=== PATIENT | female | born 1980 | race African-American/Black ===

== ENCOUNTER 2021-08-31 03:48 | Emergency (ER) | payer MEDICARE, MEDICAID, SELFPAY ==
[2021-08-31 03:59] VITALS: BP 140/101; PULSE 89; RESP 16; TEMP 36.6; O2SAT 99; BMI 35.0
[2021-08-31 04:40] LABS: Appearance Urine CLEAR; Color Urine YELLOW; Glucose Urine UA NEG (NEG); Leukocyte Esterase Urine NEG (NEG); Nitrite Urine NEG (NEG); PH 5.5 (5.0-8.0); Specific Gravity - Urine >= 1.030 (1.005-1.025); Urine Blood NEG (NEG); Urine Ketones NEG (NEG); Urine Protein TRACE MG/DL (NEG-TRACE)
[2021-08-31 04:42] LABS: UACC CULT NO
[2021-08-31 04:43] LABS: UPreg QC Valid YES; Urine Pregnancy NEGATIVE (NEGATIVE)
[2021-08-31 04:47] LABS: Bacteria Urine 3+ /LPF; Mucus Urine 2+ /LPF; RBC Urine 0 /HPF (0); Squamous Epithelial Cell Urine 3+ /LPF
[2021-08-31 04:48] LABS: Hyaline Casts Urine 0-2 /LPF
[2021-08-31 04:54] LABS: COVID-19 Test Negative (Negative); IDNOW Serial# 9DD0AD1C
[2021-08-31 04:59] LABS: Amphetamine Screen Urine Not Detected (Not Detect); Barbiturates, Urine Not Detected (Not Detect); Benzodiazepines Screen Urine Not Detected (Not Detect); Cannabinoid Screen Urine POSITIVE (Not Detect); Cocaine Screen Urine Not Detected (Not Detect); Fentanyl, urine Not Detected (Not Detect); Opiate Screen Urine Not Detected (Not Detect); Phencyclidine Screen Urine Not Detected (Not Detect)
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
--- NOTE | 2021-08-31 06:45 | PC.NURSE ---
Patient appears sleeping at this time, no distress observed/reported, behavior appropriate, med rec completed/MAR active, BHN referral completed/confirmed by Sandra, patient will be seen in the morning, will continue to monitor.
--- NOTE | 2021-08-31 07:03 | PC.NURSE ---
patient appears to remain asleep at present respirations are even and unlabored, patient appears in no distress
[2021-08-31 08:14] VITALS: BP 140/101; PULSE 89
[2021-08-31] MEDS: hydrOXYzine HCL 50 MG TABLET PO (08:14)
[2021-08-31] MEDS: Escitalopram Oxalate 10 MG TABLET PO (08:14)
[2021-08-31] MEDS: amLODIPine Besylate 5 MG TABLET PO (08:14)
[2021-08-31 09:54] VITALS: RESP 17
--- NOTE | 2021-08-31 11:02 | MHC.CARE ---
0830 CARE Team spoke with patient in 5, she stated that she has been at [facility] since Sunday and would like to go to a different respite, advised she will have to wait for [facility] to evaluate her. Prefers to be called Skinny, patient said she is in the process of legally changing her name.
== END 2021-08-31 16:38 | disposition home or self-care (01) ==
PROVIDERS: Emergency Provider Emergency Medicine Emergency Medical Services; PCP Nurse Practitioner Family
DX: R45.6 Violent behavior (principal); Z20.822 Contact with and (suspected) exposure to COVID-19
CPT/HCPCS: 36415; 80307; 81001; 81025; 87635; 99284

== ENCOUNTER 2021-10-14 21:49 | Inpatient (IN) | payer MEDICARE, MEDICAID, SELFPAY ==
[2021-10-14 21:58] VITALS: BP 135/86; PULSE 107; RESP 18; TEMP 36.5; O2SAT 98; BMI 35.5
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
[2021-10-14 22:51] LABS: COVID-19 Test Negative (Negative)
[2021-10-14 23:40] LABS: MANUAL DIFF FLAG NO
[2021-10-14 23:41] LABS: Basophils Absolute Auto 0.1 X10*3/uL (0.0-0.2); Basophils Percent Auto 0.7 % (0-2); Eosinophils Absolute Auto 0.2 X10*3/uL (0.0-0.4); Eosinophils Percent Auto 2.1 % (0-4); Hematocrit 41.2 % (37.0-47.0); Hemoglobin 13.9 g/dl (12.0-16.0); Imm Gran Abs Auto 0.04 X10*3/uL (0.00-0.03); Imm Gran Pct Auto 0.5 % (0.0-0.4); Lymphocytes Absolute Auto 2.4 X10*3/uL (1.2-4.9); Mean Corpuscular HGB Conc 33.7 g/dl (31.0-35.0); Mean Corpuscular Hemoglobin 29.6 pg (27.0-33.0); Mean Corpuscular Volume 87.7 fL (80.0-98.0); Mean Platelet Volume 10.4 fL (9.4-12.3); Monocytes Absolute Auto 0.6 X10*3/uL (0.1-1.2); Monocytes Percent Auto 6.5 % (2-11); Neutrophils Absolute Auto 5.2 x10*3/uL (2.0-8.3); Neutrophils Percent Auto 62.2 % (45-73); Platelet Count 241 X10*3/uL (160-400); Red Cell Distribution Width 13.2 % (11.0-16.0); White Blood Count 8.4 X10*3/uL (4.8-10.8)
[2021-10-14 23:59] LABS: Ethanol < 10 mg/dL
[2021-10-15 00:03] LABS: Alanine Aminotransferase 27 U/L (0-31); Albumin Level 4.1 g/dL (3.5-5.0); Alkaline Phosphatase 57 U/L (39-117); Anion Gap 12 (12-20); Aspartate Amino Transferase 23 U/L (5-31); Bilirubin Direct < 0.2 mg/dL (0.0-0.5); Bilirubin Total 0.2 mg/dL (0.0-1.0); Blood Urea Nitrogen 11 mg/dL (9-16); Calcium 9.3 mg/dL (8.4-10.2); Carbon Dioxide 29 mmol/L (22-29); Chloride 103 mmol/L (96-108); Creatinine Clr Calc Pharmacy 97.9; Estimated Glomerular Filt Rate > 60; Glucose Random 110 mg/dL (60-115); Potassium 3.5 mmol/L (3.3-5.1); Sodium 140 mmol/L (135-145); Total Protein 6.9 g/dL (6.5-8.0)
[2021-10-15 00:05] LABS: Amphetamine Screen Urine Not Detected (Not Detect); Barbiturates, Urine Not Detected (Not Detect); Benzodiazepines Screen Urine Not Detected (Not Detect); Cannabinoid Screen Urine POSITIVE (Not Detect); Cocaine Screen Urine POSITIVE (Not Detect); Fentanyl, urine Not Detected (Not Detect); Opiate Screen Urine Not Detected (Not Detect); Phencyclidine Screen Urine Not Detected (Not Detect)
--- NOTE | 2021-10-15 01:08 | ECG_ITS ---
Test Reason : [facility] Blood Pressure : / mmHG Vent. Rate : 093 BPM Atrial Rate : 093 BPM P-R Int : 154 ms QRS Dur : 080 ms QT Int : 362 ms P-R-T Axes : 063 062 039 degrees QTc Int : 450 ms Normal sinus rhythm Normal ECG No previous ECGs available Referred By: Sadie Kim Electronically Signed By:ADONIS HERNANDEZ MD
--- NOTE | 2021-10-15 01:10 | PC.NURSE ---
JULIUSN in with patient plan is to admit for treatment med rec completed
[2021-10-15 01:49] VITALS: BP 129/78; PULSE 91; RESP 18; TEMP 36.2; O2SAT 100
--- NOTE | 2021-10-15 01:53 | PC.NURSE ---
Patient being admitted to m5 room 509-1 to md Norberto Rodriguez. Vitals are within normal limits ekg completed and signed by
--- NOTE | 2021-10-15 02:43 | PC.NURSE ---
Report given to m5 rn lalo patient was escorted to m5 via security with staff member and maldonados. room 509-1 dx si and to md Alexx dubois.
[2021-10-15 02:50] VITALS: BP 141/93; PULSE 86; RESP 18; TEMP 36.5; O2SAT 100
[2021-10-15] MEDS: traZODone HCL 50 MG TABLET PO (03:43)
[2021-10-15] MEDS: Acetaminophen 325 MG TABLET 650 MG PO ×2 (03:43→21:51)
[2021-10-15 04:12] VITALS: BMI 35.5
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
[2021-10-15 06:00] VITALS: BP 129/76; PULSE 94; RESP 18; O2SAT 99
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
[2021-10-15 08:22] VITALS: BP 130/84; PULSE 85
[2021-10-15] MEDS: amLODIPine Besylate 5 MG TABLET PO (08:22)
[2021-10-15] MEDS: Nicotine Polacrilex 2 MG GUM BUCCAL ×3 (08:23→15:07)
[2021-10-15] MEDS: OLANZapine 5 MG TABLET PO ×2 (08:23→20:41)
[2021-10-15] MEDS: hydrOXYzine HCL 50 MG TABLET PO (12:03)
[2021-10-15 14:17] VITALS: BP 138/87; PULSE 99; RESP 16
[2021-10-15] MEDS: Sodium Chloride 0.65 % Nasal 44 ML SPRBTL 1 SPRAY NOSTRIL-B ×2 (14:18→20:42)
[2021-10-15 21:45] VITALS: BP 137/96; PULSE 83; TEMP 36.7
[2021-10-16] MEDS: traZODone HCL 50 MG TABLET PO (02:19)
[2021-10-16] MEDS: Sodium Chloride 0.65 % Nasal 44 ML SPRBTL 1 SPRAY NOSTRIL-B ×3 (02:19→14:51)
[2021-10-16] MEDS: busPIRone HCl 5 MG TABLET PO ×2 (02:19→13:38)
[2021-10-16 06:00] VITALS: BP 137/84; PULSE 102; RESP 18; TEMP 36.7; O2SAT 100
[2021-10-16 08:35] VITALS: BP 139/86; PULSE 94
[2021-10-16] MEDS: amLODIPine Besylate 5 MG TABLET PO (08:35)
[2021-10-16] MEDS: OLANZapine 5 MG TABLET PO (08:35)
[2021-10-16] MEDS: Nicotine Polacrilex 2 MG GUM BUCCAL (10:43)
--- NOTE | 2021-10-16 11:02 | HO.PSYCHPN ---
Subjective Subjective Date of Service: 10/16/21 Reason For Visit: SI Subjective Notes: Conditional Voluntary Healthcare Proxy: No Guardianship: No Medical Problems Affecting Mental Status: No Interim History: Patient reporting new AH to harm self, no intent or plan, no specific way - ongoing depression- Medication Compliance: Yes Side effects from medications: No Attending Groups: Intermittent Review of Systems Acute medical concerns: No Medical Review of Systems: unchanged Mental Status Exam Mental Status Exam Narrative: mildly unkempt- Patient Orientation: Person, Place, Time and Situation Level of Consciousness: Awake Patient Behavior: Appropriate Mood Description: Withdrawn and Anxious Affect Description: Blunted Patient Cognition Impaired: No Ability to Follow Directions: Fair Speech Pattern: Clear Hallucinations: Auditory (can't tell what they are saying) Thought Process: Intact Thought Content: positive for Racing and positive for Suicidal Ideation Depressive Symptoms: Increased Anxiety, Increased Irritability, Thoughts of /Suicide and Difficulty Concentrating Abnormal Motor Activity Signs and Symptoms: Restlessness Judgement: Fair Judgement and Insight: keeping us informed of sys Diagnostics Vital Signs (24Hr): Vital Signs - 24 hr 10/15/21 14:17 10/15/21 21:45 10/16/21 06:00 Temperature 98.1 F 98.1 F Pulse Rate 99 83 102 H Respiratory Rate 16 18 Blood Pressure 138/87 137/96 H 137/84 Pulse Oximetry 100 10/16/21 08:35 Temperature Pulse Rate 94 Respiratory Rate Blood Pressure 139/86 Pulse Oximetry Body Mass Index 35.5 Labs Results: 10/14/21 23:37 10/14/21 23:37 Labs: Laboratory Results - last 48 hr 10/14/21 10/14/21 10/14/21 22:22 23:37 23:37 WBC 8.4 RBC 4.70 Hgb 13.9 Hct 41.2 MCV 87.7 MCH 29.6 MCHC 33.7 RDW 13.2 Plt Count 241 MPV 10.4 Immature Gran % (Auto) 0.5 H Neut % (Auto) 62.2 Lymph % (Auto) 28.0 [place] % (Auto) 6.5 Eos % (Auto) 2.1 Baso % (Auto) 0.7 Lymph # (Auto) 2.4 [place] # (Auto) 0.6 Eos # (Auto) 0.2 Baso # (Auto) 0.1 Abs Immat Gran (auto) 0.04 H Absolute Neuts (auto) 5.2 Absolute Nucleated RBC 0.000 Nucleated RBC % (auto) 0.0 Sodium 140 Potassium 3.5 Chloride 103 Carbon Dioxide 29 Anion Gap 12 BUN 11 Creatinine 0.91 Estim Creat Clear Calc 97.9 Estimated GFR > 60 Random Glucose 110 Calcium 9.3 Total Bilirubin 0.2 Direct Bilirubin < 0.2 AST 23 ALT 27 Alkaline Phosphatase 57 Total Protein 6.9 Albumin 4.1 Urine Opiates Screen Urine Fentanyl Screen Ur Barbiturates Screen Ur Phencyclidine Scrn Ur Amphetamines Screen U Benzodiazepines Scrn Urine Cocaine Screen U Marijuana (THC) Screen Ethyl Alcohol COVID-19 (BRANDI) Negative COVID-19 Clin Com See Note 10/14/21 10/14/21 23:37 23:44 WBC RBC Hgb Hct MCV MCH MCHC RDW Plt Count MPV Immature Gran % (Auto) Neut % (Auto) Lymph % (Auto) [place] % (Auto) Eos % (Auto) Baso % (Auto) Lymph # (Auto) [place] # (Auto) Eos # (Auto) Baso # (Auto) Abs Immat Gran (auto) Absolute Neuts (auto) Absolute Nucleated RBC Nucleated RBC % (auto) Sodium Potassium Chloride Carbon Dioxide Anion Gap BUN Creatinine Estim Creat Clear Calc Estimated GFR Random Glucose Calcium Total Bilirubin Direct Bilirubin AST ALT Alkaline Phosphatase Total Protein Albumin Urine Opiates Screen Not Detected Urine Fentanyl Screen Not Detected Ur Barbiturates Screen Not Detected Ur Phencyclidine Scrn Not Detected Ur Amphetamines Screen Not Detected U Benzodiazepines Scrn Not Detected Urine Cocaine Screen POSITIVE H U Marijuana (THC) Screen POSITIVE H Ethyl Alcohol < 10 COVID-19 (BRANDI) COVID-19 Clin Com Medications Medications Current Medications Acetaminophen (Acetaminophen 325 Mg Tablet) 650 mg PO Q6H PRN PRN Reason: Headache/Pain Mild Scale (1-3) Last Admin: 10/15/21 21:51 Dose: 650 mg Documented by: Al Hydroxide/Mg Hydroxide (Magnesium Hydrox/Alum Hydrox 30 Ml Oral.Susp) 30 ml PO Q6H PRN PRN Reason: Heartburn/Nausea Amlodipine Besylate (Amlodipine Besylate 5 Mg Tablet) 5 mg PO DAILY MARY; Protocol Last Admin: 10/16/21 08:35 Dose: 5 mg Documented by: Buspirone HCl (Buspirone Hcl 5 Mg Tablet) 5 mg PO TID PRN PRN Reason: anxiety Last Admin: 10/16/21 02:19 Dose: 5 mg Documented by: Hydroxyzine HCl (Hydroxyzine Hcl 50 Mg Tablet) 50 mg PO TID PRN PRN Reason: Anxiety Last Admin: 10/15/21 12:03 Dose: 50 mg Documented by: Hydroxyzine HCl (Hydroxyzine Hcl 25 Mg Tablet) 25 mg PO BEDTIME PRN PRN Reason: Anxiety Magnesium Hydroxide (Milk Of Magnesia 30 Ml Oral.Susp) 30 ml PO DAILY PRN PRN Reason: Constipation Nicotine Polacrilex (Nicotine Polacrilex 2 Mg Gum) 2 mg BUCCAL Q2H PRN PRN Reason: Nicotine Cravings Last Admin: 10/16/21 10:43 Dose: 2 mg Documented by: Olanzapine (Olanzapine 5 Mg Tablet) 5 mg PO BID MARY Last Admin: 10/16/21 08:35 Dose: 5 mg Documented by: Sodium Chloride (Sodium Chloride 0.65 % Nasal 44 Ml Sprbtl) 1 spray NOSTRIL-B Q1H PRN PRN Reason: Nasal Congestion Last Admin: 10/16/21 08:35 Dose: 1 spray Documented by: Trazodone HCl (Trazodone Hcl 50 Mg Tablet) 50 mg PO BEDTIME PRN PRN Reason: Insomnia Last Admin: 10/16/21 02:19 Dose: 50 mg Documented by: Allergies Allergies Allergy/AdvReac Type Severity Reaction Status Date / Time No Known Allergies Allergy Unverified 08/05/20 18:43 flu shot Allergy Unknown unknown Uncoded 10/15/21 18:55 Assessment & Plan Assessment & Plan (1) Suicidal ideation: Status: Acute Code(s): R45.851 - Suicidal ideations Assessment and Plan: mileu therapy 15min checks groups as tolerated (2) Mood disorder: Status: Acute Code(s): F39 - Unspecified mood [affective] disorder Assessment and Plan: continue trial olanzapine change all olanzapine to hs and add in low dose antidep in am - hx escitalopram (3) Cannabis abuse: Status: Acute Code(s): F12.10 - Cannabis abuse, uncomplicated Assessment and Plan: psychoed re cannabis and mood/psychosis (4) Cocaine abuse: Status: Acute Code(s): F14.10 - Cocaine abuse, uncomplicated Assessment and Plan: psychoed/groups re substance abuse Assessment and Plan: continue trial olanzapine groups psych/dula mileu I spent minutes with the patient and/or on the patient floor today, greater than?50% of which was spent counseling/coordinating care. Patient educated on: medication risk/benefits Informed Consent: understands Reason for contiued inpatient stay Substantial Risk for: harm to self and rapid decompensation
[2021-10-16] MEDS: Escitalopram Oxalate 5 MG TABLET PO (13:38)
[2021-10-16] MEDS: Acetaminophen 325 MG TABLET 650 MG PO (16:05)
[2021-10-16 18:00] VITALS: BP 134/86; PULSE 96; RESP 18; TEMP 36.7; O2SAT 98
[2021-10-16] MEDS: hydrOXYzine HCL 50 MG TABLET PO (18:27)
[2021-10-16] MEDS: OLANZapine 10 MG TABLET PO (20:00)
[2021-10-17] MEDS: busPIRone HCl 5 MG TABLET PO ×3 (00:21→22:15)
[2021-10-17] MEDS: traZODone HCL 50 MG TABLET PO (00:21)
[2021-10-17 06:00] VITALS: BP 155/92; PULSE 88; RESP 18; TEMP 36.6; O2SAT 100
[2021-10-17] MEDS: Acetaminophen 325 MG TABLET 650 MG PO ×2 (09:15→20:23)
[2021-10-17 09:16] VITALS: BP 131/80; PULSE 99
[2021-10-17] MEDS: amLODIPine Besylate 5 MG TABLET PO (09:16)
[2021-10-17] MEDS: Escitalopram Oxalate 5 MG TABLET PO (09:16)
[2021-10-17] MEDS: Nicotine Polacrilex 2 MG GUM BUCCAL (10:04)
[2021-10-17] MEDS: Sodium Chloride 0.65 % Nasal 44 ML SPRBTL 1 SPRAY NOSTRIL-B ×2 (10:27→20:19)
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
[2021-10-17 17:46] VITALS: BP 137/77; PULSE 98; TEMP 36.6; O2SAT 98
[2021-10-17 20:19] VITALS: BP 136/81; PULSE 98
[2021-10-17] MEDS: cloNIDine HCL 0.1 MG TABLET PO (20:19)
[2021-10-17] MEDS: traZODone HCL 100 MG TABLET PO (20:19)
[2021-10-17] MEDS: hydrOXYzine HCL 50 MG TABLET PO (22:15)
[2021-10-18] MEDS: OLANZapine 5 MG TABLET PO ×3 (00:21→18:25)
--- NOTE | 2021-10-18 00:34 | PC.NURSE ---
Patient is awake at 23:55pm Patient is reporting she is still struggling to sleep. Patient becomes agitated and yells at this grant writer stating You all are giving me the wrong meds! Why I am I still awake?!?! Patient continues to be agitated yelling and demanding her personal belongings stating I am leaving! Patient continues to yell and is unable to be de-escalated. Security is called for support. Patient is administered 5 mg Zyprexa P.O. Patient sits up in the Kitchen to de-escalate. Patient is offered Room 505 as an option to lay down and rest. She reports You're not hearing me. I can't sleep. I am not tired! Will continue to monitor patient for safety and well-being.
[2021-10-18] MEDS: Magnesium Hydrox/Alum Hydrox 30 ML ORAL.SUSP PO (01:25)
[2021-10-18] MEDS: hydrOXYzine HCL 50 MG TABLET PO ×3 (01:52→18:25)
[2021-10-18] MEDS: clonazePAM 1 MG TABLET PO (01:52)
--- NOTE | 2021-10-18 02:01 | PC.NURSE ---
Patient is awake and agitated at 1:15am reporting Nausea and demanding to be brought down to the E.D. to be seen by a doctor. Patient is administered Maalox. She continues to report nausea and remains agitated stating she needs to see a doctor. Covering Provider Pily Minor is contacted and Klonopin 1mg and Hydroxyzine 50mg is ordered and administered. Will continue to monitor patient for safety and well-being.
[2021-10-18 06:00] VITALS: BP 159/83; PULSE 102; RESP 20; TEMP 36.2; O2SAT 98
[2021-10-18] MEDS: busPIRone HCl 5 MG TABLET PO (08:27)
[2021-10-18 08:28] VITALS: BP 159/83; PULSE 102
[2021-10-18] MEDS: Escitalopram Oxalate 10 MG TABLET PO (08:28)
[2021-10-18] MEDS: Sodium Chloride 0.65 % Nasal 44 ML SPRBTL 1 SPRAY NOSTRIL-B ×3 (08:28→16:01)
[2021-10-18] MEDS: amLODIPine Besylate 5 MG TABLET PO (08:28)
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
--- NOTE | 2021-10-18 11:01 | PC.NURSE ---
Patient signed a 3 day notice 10.18.21, up on 10.21.21, MD and SW notified.
[2021-10-18 12:03] VITALS: BP 154/67; PULSE 101
[2021-10-18] MEDS: cloNIDine HCL 0.1 MG TABLET PO (12:03)
[2021-10-18] MEDS: Nicotine Polacrilex 2 MG GUM BUCCAL (12:05)
[2021-10-18 13:36] VITALS: BP 154/67; PULSE 101
--- NOTE | 2021-10-18 13:37 | PC.NURSE ---
Patient agitated, anxious in AM, requesting to leave because ' I can't sleep, I don't want another night like last night.' Patient encouraged to meet with provider, and informed re: 3 day notice, which she signed. After meeting patient reported feeling a little better, but requested medication for anxiety/agitation. Zyprexa, clonidine given w/ effect. Pt declined second dose of clonidine, stating 'I am tired.' Pt reports significant reduction in anxiety, reports that at this time she does not want to leave until Sunday.
[2021-10-18 18:00] VITALS: BP 114/69; PULSE 102; TEMP 36.4; O2SAT 99
[2021-10-19] MEDS: Acetaminophen 325 MG TABLET 650 MG PO ×2 (00:11→08:42)
[2021-10-19 00:12] VITALS: BP 155/87; PULSE 100
[2021-10-19] MEDS: QUEtiapine Fumarate 25 MG TABLET 75 MG PO (00:12)
[2021-10-19] MEDS: cloNIDine HCL 0.1 MG TABLET PO ×2 (00:12→08:41)
--- NOTE | 2021-10-19 00:14 | PC.NURSE ---
Patient was anxious, irritable and resistive to care. She was angry about the fact that she was being monitored when she had her two phones. She made a phone call and was walking in the hallway. Staff tried to intervene and she said to back off and stop following me . Security was called for back up. Patient did finally give back her phones but said You all don't pay my fucking phone bill, so what gives you the right to tell me when I can use it? . Patient took prn meds and calmed down. Later patient declined to take her HS meds and said I don't think I really want to take any more meds here. Patient was resting on her bed at the time. About 30 minutes later staff told this sign writer hand the patient had pushed the chair in her room against the bedroom door to keep staff from doing checks. Patient said to this sign writer hand They are really bothering me with opening the door all the time . Patient did not resist when chair was moved away from the door. No further outbursts.
[2021-10-19] MEDS: Sodium Chloride 0.65 % Nasal 44 ML SPRBTL 1 SPRAY NOSTRIL-B ×2 (00:19→04:38)
[2021-10-19 05:59] VITALS: BP 129/82; PULSE 98; RESP 18; TEMP 36.6; O2SAT 100
[2021-10-19 08:41] VITALS: BP 129/82; PULSE 98
[2021-10-19] MEDS: amLODIPine Besylate 5 MG TABLET PO (08:41)
[2021-10-19] MEDS: Escitalopram Oxalate 10 MG TABLET PO (08:42)
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
--- NOTE | 2021-10-19 11:24 | P.DS_ITS ---
DS: Providers Provider Date of Service: 10/19/21 Date of admission: 10/15/21 01:44 Date of discharge: 10/19/21 Primary care physician: Alessandra Physician Attending physician on admission: Kylie Arce Attending physician on discharge: Sergo Watts DS: Diagnosis Discharge Diagnosis (1) Adjustment disorder with mixed disturbance of emotions and conduct in remission: Status: Acute (2) Cocaine abuse: Status: Acute (3) Cannabis abuse: Status: Acute DS: Medications Discharge Medications Home Medications: Previous Rx's Medication Instructions Recorded amlodipine 5 mg tablet 5 mg PO DAILY 30 Days #30 tab 10/19/21 clonidine HCl 0.1 mg tablet 0.1 mg PO BID PRN 30 Days #60 tab 10/19/21 escitalopram oxalate 10 mg tablet 10 mg PO DAILY 30 Days #30 tab 10/19/21 nicotine (polacrilex) 2 mg gum 2 mg BUCCAL Q2H PRN 30 Days #50 ea 10/19/21 quetiapine 25 mg tablet 75 mg PO BEDTIME 30 Days #90 tab 10/19/21 Mental Status Exam Mental Status Exam Narrative: Appearance: mildly unkempt but adequate hygiene Patient Orientation:?Person, Place, Time and Situation Level of Consciousness:?Awake Patient Behavior:?Appropriate Mood Description:? good Affect Description:?congruent, calm Patient Cognition Impaired:?No Ability to Follow Directions:?Fair Speech Pattern:?Clear Hallucinations:?denies Thought Process:? Linear, logical and goal directed Thought Content:? Denies any SI or HI.? discharge, getting into program Abnormal Motor Activity Signs and Symptoms:? None Judgment and Insight:? Intact Data Data Completed and Pending Completed studies during hospitalization [Text1]: 10/14/21 10/14/21 10/14/21 22:22 23:37 23:37 WBC 8.4 RBC 4.70 Hgb 13.9 Hct 41.2 MCV 87.7 MCH 29.6 MCHC 33.7 RDW 13.2 Plt Count 241 MPV 10.4 Immature Gran % (Auto) 0.5 H Neut % (Auto) 62.2 Lymph % (Auto) 28.0 [place] % (Auto) 6.5 Eos % (Auto) 2.1 Baso % (Auto) 0.7 Lymph # (Auto) 2.4 [place] # (Auto) 0.6 Eos # (Auto) 0.2 Baso # (Auto) 0.1 Abs Immat Gran (auto) 0.04 H Absolute Neuts (auto) 5.2 Absolute Nucleated RBC 0.000 Nucleated RBC % (auto) 0.0 Sodium 140 Potassium 3.5 Chloride 103 Carbon Dioxide 29 Anion Gap 12 BUN 11 Creatinine 0.91 Estim Creat Clear Calc 97.9 Estimated GFR > 60 Random Glucose 110 Calcium 9.3 Total Bilirubin 0.2 Direct Bilirubin < 0.2 AST 23 ALT 27 Alkaline Phosphatase 57 Total Protein 6.9 Albumin 4.1 Urine Opiates Screen Urine Fentanyl Screen Ur Barbiturates Screen Ur Phencyclidine Scrn Ur Amphetamines Screen U Benzodiazepines Scrn Urine Cocaine Screen U Marijuana (THC) Screen Ethyl Alcohol COVID-19 (BRANDI) Negative COVID-19 Clin Com See Note 10/14/21 10/14/21 23:37 23:44 WBC RBC Hgb Hct MCV MCH MCHC RDW Plt Count MPV Immature Gran % (Auto) Neut % (Auto) Lymph % (Auto) [place] % (Auto) Eos % (Auto) Baso % (Auto) Lymph # (Auto) [place] # (Auto) Eos # (Auto) Baso # (Auto) Abs Immat Gran (auto) Absolute Neuts (auto) Absolute Nucleated RBC Nucleated RBC % (auto) Sodium Potassium Chloride Carbon Dioxide Anion Gap BUN Creatinine Estim Creat Clear Calc Estimated GFR Random Glucose Calcium Total Bilirubin Direct Bilirubin AST ALT Alkaline Phosphatase Total Protein Albumin Urine Opiates Screen Not Detected Urine Fentanyl Screen Not Detected Ur Barbiturates Screen Not Detected Ur Phencyclidine Scrn Not Detected Ur Amphetamines Screen Not Detected U Benzodiazepines Scrn Not Detected Urine Cocaine Screen POSITIVE H U Marijuana (THC) Screen POSITIVE H Ethyl Alcohol < 10 COVID-19 (BRANDI) COVID-19 Clin Com DS: Summary Hospital Course Hospital Course: 41-year-old female with history of depression and anxiety was admitted to [facility] for 3 days, left [facility] and relapsed on cocaine and mj, feels she left there too soon and then that same evening Presented to [facility] with worsening si the context of her beloved grandmother dying this past week (Lived with grandmother as anesthesiologist and critical care and will now have to move 10/2021.).? Pt reports that she was discharged from [facility] in a good mood, however later that day she was triggered by her ex-partner and again felt suicidal. Patient's depression multifactorial as she has chronic depression, has started using cocaine daily for the past 2 months and is now in withdrawal and is mourning the of her beloved grandmother; additionally she has to find a new place to live.?Pt reported new symptoms of AH at nighttime which were mood congruent and in the content of cocaine withdrawal; she has no history of psychotic symptoms or manic episodes. Patient irritable on admission and with continued insomnia. She was started on Olanzapine 10mg at bedtime which was not helpful and it was changed to PRN. Her Lexapro was increased to 10mg and she was started on clonidine for anxiety/agitation which was helpful but did not resolve insomnia, though her AH and SI resolved. She signed a 3 day notice, demanded discharge but calmed down, apologizing for her demeanor, saying she's just irritable since she's tired. Patient was successfully started on Seroquel at bedtime which resolved her insomnia. Pt intermittently remained irritable and at times verbally assaultive to staff, triggered by specific situations such as not getting access to her phone when she wanted it. However, her SI remained resolved and she did not demonstrate any dangerous behaviors to self or others. After patient slept on Seroquel, she reported being in a good mood and asked for discharge. She continued to deny any SI and says that AH remains resolved. Pt felt stable and wanted to dc so she could attend orientation at [facility] and also to go home and pack her belongings since she's moving this Sunday. Pt was future oriented and optimistic about staying sober. 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 Pt expressed gratitude for help w/ insomnia and feels meds are effective; she denies side-effects; insurance writer reviewed risks/side-effects of regimen including seroquel and pt agrees to continue. Pt is not in imminent risk for harm to self or others; pt has 3 day notice in and request for dc honored. Time spent discussing smoking cessation with patient: 3 to 10 minutes Status at Discharge Functional status at discharge: independent ambulation Overall status at discharge: patient is back to baseline Time Spent with Patient Time attestation: Total time spent providing and/or coordinating discharge services: Time spent: Greater than 30 minutes Discharge Plan Discharge Patient Disposition: Home, Self-Care Discharge Diagnosis: adjustment disorder, with disturbance of mood and conduct, in full remission Referrals: Therapy & Psych: [facility] [Other] - 1 Week (Will call you with appointments once obtained) Care Home: [facility] [Other] - 1 Week (Call to check in every 2 to 3 days) Patricia Paz, FAMILY RESOURCE COORDINATOR-BC [Nurse Practitioner] - 1 Week Discharge Medications: New nicotine (polacrilex) 2 mg Gum 2 mg buccal Q2H PRN (Reason: Nicotine Cravings) 30 Days Qty: 50 RF: 0 clonidine HCl 0.1 mg Tablet 0.1 mg PO BID PRN (Reason: anxiety) 30 Days Qty: 60 RF: 0 escitalopram oxalate 10 mg Tablet 10 mg PO DAILY 30 Days Qty: 30 RF: 0 quetiapine 25 mg Tablet 75 mg PO BEDTIME 30 Days Qty: 90 RF: 0 Changed amlodipine 5 mg tablet 5 mg PO DAILY 30 Days Qty: 30 RF: 0 Discontinued hydroxyzine HCl 50 mg tablet 1 tab PO TID PRN (Reason: Anxiety) RF: 0 olanzapine 10 mg tablet 0.5 tab PO BID RF: 0 Discharge Orders: Discharge Order (Routine); Ordered 10/19/21 Ordered By: Sergo Watts Diet: regular diet Activity on Discharge: As tolerated Stand Alone Forms: Patient Portal Discharge page, Community Support Care Plan Goals: Maintain mood and safe behaviors Take medications as prescribed Continue to pursue sobriety Practice coping skills Continue with outpatient providers and reach out to them as needed Health Concerns: Mood stability and behaviors Sobriety Hypertension Plan of Treatment: Follow up with your PCP, psychiatric provider and other outpatient providers regarding above concerns Take medications as prescribed Assessment: Risk assessment at time of discharge:? Patient was interviewed prior to discharge and found to be fully oriented and without any SI or HI. Patient has insight and demonstrates good judgment in terms of wanting to pursue treatment. Patient is not in imminent risk of harm to self or others and has a safety plan that includes presenting to the closest ER or calling 911 if feeling unsafe.? Patient has been observed closely by nursing and unit staff throughout admission; patient has not engaged in any behaviors that suggest dangerousness to self or others. Discharge Date/Time: 10/19/21 13:24
== END 2021-10-19 13:24 | disposition home or self-care (01) | DRG 882 ==
LOC: HO.ED 22:07 → HO.PM5 10-15 01:47
PROVIDERS: Physician Assistant; Admitting Provider Psychiatry & Neurology Psychiatry; Emergency Provider Internal Medicine; Visit Provider Psychiatry & Neurology Psychiatry
DX: F43.25 Adjustment disorder with mixed disturbance of emotions and conduct (principal); R45.851 Suicidal ideations; Z20.822 Contact with and (suspected) exposure to COVID-19; F12.10 Cannabis abuse, uncomplicated; F14.10 Cocaine abuse, uncomplicated; F17.210 Nicotine dependence, cigarettes, uncomplicated; Z71.6 Tobacco abuse counseling; Z79.1 Long term (current) use of non-steroidal anti-inflammatories (NSAID); Z79.899 Other long term (current) drug therapy
CPT/HCPCS: 36415; 80048; 80076; 80307; 82077; 85025; 87635; 93005; 99283; 99285

== ENCOUNTER 2021-10-21 10:36 | Emergency (ER) | payer MEDICARE, MEDICAID, SELFPAY ==
[2021-10-21 11:51] VITALS: BP 140/93; PULSE 99; RESP 18; TEMP 36.7; O2SAT 100; BMI 36.4
--- NOTE | 2021-10-21 11:56 | ED.SKABFB ---
HPI - Skin/Abscess/Foreign Bdy General Chief complaint: Skin/Abscess/Foreign Body Stated complaint: boil Time Seen by Provider: 10/21/21 11:55 Source: patient Mode of arrival: ambulatory Limitations: no limitations History of Present Illness MD complaint: abscess/boil Onset (ago): week(s) (1 week worsen the past 2-3 days) Location: back ( left sided) Severity: moderate Quality: aching Pain Consistency: constant Relieving factors: none Exacerbating factors: none Context: none Associated symptoms: denies other symptoms Treatments prior to arrival: attempted to drain pus at home Related Data Previous Rx's Medication Instructions Recorded amlodipine 5 mg tablet 5 mg PO DAILY 30 Days #30 tab 10/19/21 clonidine HCl 0.1 mg tablet 0.1 mg PO BID PRN 30 Days #60 tab 10/19/21 escitalopram oxalate 10 mg tablet 10 mg PO DAILY 30 Days #30 tab 10/19/21 nicotine (polacrilex) 2 mg gum 2 mg BUCCAL Q2H PRN 30 Days #50 ea 10/19/21 quetiapine 25 mg tablet 75 mg PO BEDTIME 30 Days #90 tab 10/19/21 acetaminophen 500 mg tablet 1,000 mg PO QID PRN #14 tab 10/21/21 (Tylenol Extra Strength) cephalexin 500 mg capsule 500 mg PO Q6H 10 Days #40 cap 10/21/21 doxycycline monohydrate 100 mg 100 mg PO BID 10 Days #20 cap 10/21/21 capsule ibuprofen 800 mg tablet 800 mg PO Q8H PRN #14 tab 10/21/21 oxycodone 5 mg tablet 5 mg PO Q6H PRN #14 tab 10/21/21 Allergies Allergy/AdvReac Type Severity Reaction Status Date / Time No Known Allergies Allergy Verified 10/21/21 11:53 flu shot Allergy Unknown unknown Uncoded 10/15/21 18:55 Review of Systems Review of Systems: Constitutional : No Fever, No Chills, Cardiovascular : No Chest Pain, No SOB Respiratory : No Dyspnea Gastrointestinal : No abdominal pain Musculoskeletal : No Joint Swelling Skin : positive skin abscess with surrounding erythema, no skin laceration, No Foreign bodies, No rash Neuro : No Weakness, No Numbness/tingling Psych : No SI/HI/thoughts of self injury Yes all other systems are reviewed and are negative PMFSH Past Medical History Attestation statement: The following information was validated with the patient. Medical History Adjustment disorder with mixed disturbance of emotions and conduct in remission PTSD (post-traumatic stress disorder) Social History Social History Household Members: None Housing: House Do you presently have visiting nurse or other home services: No Patient Tobacco Use Status: Current everyday Tobacco user Tobacco use type: Cigarette Cigarettes Per Day: 10 Years Smoked: 12 Second Hand Smoke Exposure: No Substance Use Type: Crack/Cocaine and Marijuana Advance Directives: No Patient : No service: No Sexual orientation: Lesbian/[facility]/Homosexual Physical Exam Vital Signs: Vital Signs: Last Vital Signs Temp 98.0 F 10/21/21 11:51 Pulse 99 10/21/21 11:51 Resp 18 10/21/21 11:51 BP 140/93 H 10/21/21 11:51 Pulse Ox 100 10/21/21 11:51 BMI result Body Mass Index 36.4 vital signs have been reviewed as normal and appeared to be correct. Blood pressure normal Heart rate normal. Respiration rate normal. Temperature normal. Oxygen saturation normal. Appearance: Alert. Oriented X3. No acute distress. Head: Normal external exam. Normocephalic. Atraumatic. Eyes: PERRLA. EOMI. Conjunctiva and sclera normal. Eyelids normal. ENT: Pharynx normal. Uvula midline. Moist mucous membranes. Neck: Normal inspection. Neck supple. FROM. CVS: Normal heart rate and rhythm. Respiratory: No respiratory distress. Painless inspiration. Skin: Skin warm and dry. Normal skin color. Normal skin turgor. to the left side of the back patient has a 1 x 1 cm fluctuant abscess with mild purulent drainage noted with mild surrounding erythema. No streaking/induration /foreign bodies noted. No additional rashes/lesions/lacerations noted. Extremities: Extremities exhibit normal range of motion. Extremities nontender. Neuro: Oriented X 3. No motor deficit. No sensory deficit. Reflexes normal. Normal steady gait. No focal neuro deficits noted. Vascular: + radial pulses Normal cap refill. No cyanosis noted to upper extremity nails Course Course Course Narrative: 41-year-old female presenting to the ED with complaints of an abscess to her left mid back for the past week worse in the past 2-3 days. Denies history of MRSA. Denies any fevers or chills or any other symptoms complaints or concerns. Patient now status post I&D of abscess. Patient tolerated procedure well. No complications. Will DC home antibiotics and symptomatic treatment instructions return if any new or worsening symptoms follow up with primary care provider. Patient understands agrees with this plan. MDM - Skin/Abscess/Foreign Bdy Medical Records Attestation: I reviewed the patient's medical records. Procedures Abscess I/D Site: back Side (if applicable): left Local Anesthetic: lidocaine 2% Amount of anesthesia used (mL): 5 Technique: needle aspiration and incised with blade Amount of fluid expressed (mL): 3 Sent for culture/gram staining?: No Irrigation: Yes Packing used?: none Complications: other ( No complications) Discharge Plan Discharge Clinical Impression: Cellulitis, Abscess of skin or subcutaneous tissue Patient Disposition: Home, Self-Care Instructions: Cellulitis (ED), Abscess Incision and Drainage (DC), Warm Compress or Soak (ED) Prescriptions: New cephalexin 500 mg capsule 500 mg PO Q6H 10 Days Qty: 40 RF: 0 acetaminophen [Tylenol Extra Strength] 500 mg tablet 1,000 mg PO QID PRN (Reason: fever or pain) Qty: 14 RF: 0 ibuprofen 800 mg tablet 800 mg PO Q8H PRN (Reason: pain) Qty: 14 RF: 0 doxycycline monohydrate 100 mg capsule 100 mg PO BID 10 Days Qty: 20 RF: 0 oxycodone 5 mg tablet 5 mg PO Q6H PRN (Reason: pain) Qty: 14 RF: 0 No Action nicotine (polacrilex) 2 mg Gum 2 mg buccal Q2H PRN (Reason: Nicotine Cravings) 30 Days Qty: 50 RF: 0 clonidine HCl 0.1 mg Tablet 0.1 mg PO BID PRN (Reason: anxiety) 30 Days Qty: 60 RF: 0 escitalopram oxalate 10 mg Tablet 10 mg PO DAILY 30 Days Qty: 30 RF: 0 quetiapine 25 mg Tablet 75 mg PO BEDTIME 30 Days Qty: 90 RF: 0 amlodipine 5 mg tablet 5 mg PO DAILY 30 Days Qty: 30 RF: 0 Referrals: Patricia Paz, TECHNICAL SUPPORT 1 SOFTWARE ENGINEER-BC [Primary Care Provider] - 2 days Stand Alone Forms: Work/School Release
[2021-10-21] MEDS: Acetaminophen 325 MG TABLET 975 MG PO (12:01)
[2021-10-21] MEDS: cephALEXin 500 MG CAPSULE PO (12:01)
[2021-10-21] MEDS: Lidocaine HCl 2 % MPF 5 ML VIAL SUBCUT (12:01)
== END 2021-10-21 12:30 | disposition home or self-care (01) ==
LOC: HO.ED 12:08
PROVIDERS: Emergency Provider Emergency Medicine; PCP Nurse Practitioner Family
DX: L02.212 Cutaneous abscess of back [any part, except buttock and flank] (principal); L03.312 Cellulitis of back [any part except buttock and flank]
CPT/HCPCS: 10060; 99283; 99284

== ENCOUNTER 2021-10-25 23:16 | Emergency (ER) | payer MEDICARE, MEDICAID, SELFPAY ==
[2021-10-25 23:28] VITALS: BP 154/90; PULSE 99; RESP 16; TEMP 36.3; O2SAT 100; BMI 36.1
--- NOTE | 2021-10-25 23:52 | ED_ITS ---
HPI - Psych General Chief Complaint: Psychiatric Symptoms Stated Complaint: SI Time Seen by Provider: 10/25/21 23:25 History of Present Illness HPI Narrative: Patient is a 41-year-old female presents today with having suicidal ideation. No specific plan. Positive for lot of stressors in life. Positive cocaine use. Positive marijuana use. Patient denies any heroin abuse. Feels that she is so stressed out she is going to jump into traffic. Patient came in for further evaluation Related Data Previous Rx's Medication Instructions Recorded amlodipine 5 mg tablet 5 mg PO DAILY 30 Days #30 tab 10/19/21 clonidine HCl 0.1 mg tablet 0.1 mg PO BID PRN 30 Days #60 tab 10/19/21 escitalopram oxalate 10 mg tablet 10 mg PO DAILY 30 Days #30 tab 10/19/21 nicotine (polacrilex) 2 mg gum 2 mg BUCCAL Q2H PRN 30 Days #50 ea 10/19/21 quetiapine 25 mg tablet 75 mg PO BEDTIME 30 Days #90 tab 10/19/21 cephalexin 500 mg capsule 500 mg PO Q6H 10 Days #40 cap 10/21/21 doxycycline monohydrate 100 mg 100 mg PO BID 10 Days #20 cap 10/21/21 capsule ibuprofen 800 mg tablet 800 mg PO Q8H PRN #14 tab 10/21/21 Allergies Allergy/AdvReac Type Severity Reaction Status Date / Time No Known Allergies Allergy Verified 10/21/21 11:53 flu shot Allergy Unknown unknown Uncoded 10/15/21 18:55 Review of Systems Review of Systems: No chest pain or shortness of breath no nausea no vomiting Yes all other systems are reviewed and are negative PMFSH Past Medical History Attestation statement: The following information was validated with the patient. Medical History Adjustment disorder with mixed disturbance of emotions and conduct in remission PTSD (post-traumatic stress disorder) Social History Social History Household Members: None Housing: House Do you presently have visiting nurse or other home services: No Alcohol intake: never Patient Tobacco Use Status: Current everyday Tobacco user Tobacco use type: Cigarette Cigarettes Per Day: 10 Years Smoked: 12 Second Hand Smoke Exposure: No Use of substances other than those prescribed or required for medical reasons: No Substance Use Type: Crack/Cocaine and Marijuana Advance Directives: No Patient : No service: No Sexual orientation: Lesbian/[facility]/Homosexual Physical Exam Vital Signs: Vital Signs: Last Vital Signs Temp 97.4 F 10/25/21 23:28 Pulse 97 10/26/21 01:31 Resp 16 10/26/21 06:11 BP 143/86 H 10/26/21 01:31 Pulse Ox 99 10/26/21 06:11 BMI result Body Mass Index 36.1 MDM - Psych MDM Narrative Medical decision making narrative: Patient's COVID test is positive. O2 sat is normal. No distress. Awaiting crisis evaluation. Lab Data Labs: Lab Results 10/25/21 10/25/21 10/25/21 Range/Units 23:45 23:45 23:45 Urine Color YELLOW Urine Appearance CLEAR Urine pH 6.5 (5.0-8.0) Ur Specific [place] 1.020 (1.005-1.025) Urine Protein NEG (NEG-TRACE) MG/DL Urine Glucose (UA) NEG (NEG) MG/DL Urine Ketones NEG (NEG) MG/DL Urine Blood NEG (NEG) Urine Nitrite NEG (NEG) Ur Leukocyte Esterase NEG (NEG) Urine RBC 0-2 (0) /HPF Urine WBC 0 (0-4) /HPF Ur Squamous Epith Cells TRACE /LPF Urine Bacteria NONE /LPF Urine Test NEGATIVE (NEGATIVE) Urine Opiates Screen (Not Detect) Urine Fentanyl Screen (Not Detect) Ur Barbiturates Screen (Not Detect) Ur Phencyclidine Scrn (Not Detect) Ur Amphetamines Screen (Not Detect) U Benzodiazepines Scrn (Not Detect) Urine Cocaine Screen (Not Detect) U Marijuana (THC) Screen (Not Detect) COVID-19 (BRANDI) Positive A (Negative) COVID-19 Clin Com See Note 10/25/21 Range/Units 23:45 Urine Color Urine Appearance Urine pH (5.0-8.0) Ur Specific [place] (1.005-1.025) Urine Protein (NEG-TRACE) MG/DL Urine Glucose (UA) (NEG) MG/DL Urine Ketones (NEG) MG/DL Urine Blood (NEG) Urine Nitrite (NEG) Ur Leukocyte Esterase (NEG) Urine RBC (0) /HPF Urine WBC (0-4) /HPF Ur Squamous Epith Cells /LPF Urine Bacteria /LPF Urine Test (NEGATIVE) Urine Opiates Screen Not Detected (Not Detect) Urine Fentanyl Screen Not Detected (Not Detect) Ur Barbiturates Screen Not Detected (Not Detect) Ur Phencyclidine Scrn Not Detected (Not Detect) Ur Amphetamines Screen Not Detected (Not Detect) U Benzodiazepines Scrn Not Detected (Not Detect) Urine Cocaine Screen POSITIVE H (Not Detect) U Marijuana (THC) Screen POSITIVE H (Not Detect) COVID-19 (BRANDI) (Negative) COVID-19 Clin Com Discharge Plan Discharge Clinical Impression: Suicidal ideation, COVID-19 Prescriptions: No Action cephalexin 500 mg capsule 500 mg PO Q6H 10 Days Qty: 40 RF: 0 ibuprofen 800 mg tablet 800 mg PO Q8H PRN (Reason: pain) Qty: 14 RF: 0 doxycycline monohydrate 100 mg capsule 100 mg PO BID 10 Days Qty: 20 RF: 0 nicotine (polacrilex) 2 mg Gum 2 mg buccal Q2H PRN (Reason: Nicotine Cravings) 30 Days Qty: 50 RF: 0 clonidine HCl 0.1 mg Tablet 0.1 mg PO BID PRN (Reason: anxiety) 30 Days Qty: 60 RF: 0 escitalopram oxalate 10 mg Tablet 10 mg PO DAILY 30 Days Qty: 30 RF: 0 quetiapine 25 mg Tablet 75 mg PO BEDTIME 30 Days Qty: 90 RF: 0 amlodipine 5 mg tablet 5 mg PO DAILY 30 Days Qty: 30 RF: 0
[2021-10-26] MEDS: cephALEXin 500 MG CAPSULE PO ×5 (00:19→22:16)
[2021-10-26 00:33] LABS: Appearance Urine CLEAR; Color Urine YELLOW; Glucose Urine UA NEG (NEG); Leukocyte Esterase Urine NEG (NEG); Nitrite Urine NEG (NEG); PH 6.5 (5.0-8.0); Urine Blood NEG (NEG); Urine Ketones NEG (NEG); Urine Protein NEG (NEG-TRACE)
[2021-10-26 00:37] LABS: UPreg QC Valid YES; Urine Pregnancy NEGATIVE (NEGATIVE)
[2021-10-26 00:39] LABS: IDNOW Serial# 9DD0AD1C
[2021-10-26 00:40] LABS: COVID-19 Test Positive (Negative)
[2021-10-26 00:44] LABS: Amphetamine Screen Urine Not Detected (Not Detect); Barbiturates, Urine Not Detected (Not Detect); Benzodiazepines Screen Urine Not Detected (Not Detect); Cannabinoid Screen Urine POSITIVE (Not Detect); Cocaine Screen Urine POSITIVE (Not Detect); Fentanyl, urine Not Detected (Not Detect); Opiate Screen Urine Not Detected (Not Detect); Phencyclidine Screen Urine Not Detected (Not Detect)
[2021-10-26 00:56] LABS: RBC Urine 0-2 /HPF (0); Squamous Epithelial Cell Urine TRACE /LPF; WBC Urine 0 /HPF (0-4)
--- NOTE | 2021-10-26 01:15 | PC.NURSE ---
[facility] referral completed/confirmed pending evaluation in the morning, patient is in the process moving out to main ED due to Positive covid test. Will continue to monitor.
[2021-10-26 01:31] VITALS: BP 143/86; PULSE 97; RESP 14; O2SAT 100
[2021-10-26 06:11] VITALS: RESP 16; O2SAT 99
[2021-10-26 07:25] VITALS: BP 120/71; PULSE 90; RESP 16; TEMP 37.3; O2SAT 100
--- NOTE | 2021-10-26 07:40 | PHA.MEDREC ---
Pharmacy Consult ? Medication Reconciliation Pharmacy has reviewed the medication reconciliation completed by Tony. Elin Camargo, GissellD
[2021-10-26 08:43] VITALS: BP 121/79; PULSE 93
[2021-10-26] MEDS: Escitalopram Oxalate 10 MG TABLET PO (08:43)
[2021-10-26] MEDS: amLODIPine Besylate 5 MG TABLET PO (08:43)
[2021-10-26 15:34] VITALS: BP 131/74; PULSE 95; RESP 18; TEMP 37.2; O2SAT 97
[2021-10-26] MEDS: LORazepam 1 MG TABLET 2 MG PO (17:58)
[2021-10-26] MEDS: QUEtiapine Fumarate 25 MG TABLET 75 MG PO (21:15)
[2021-10-26 22:25] VITALS: BP 133/82; PULSE 86
[2021-10-26] MEDS: cloNIDine HCL 0.1 MG TABLET PO (22:25)
[2021-10-27] MEDS: cephALEXin 500 MG CAPSULE PO (06:47)
--- NOTE | 2021-10-27 06:48 | PC.NURSE ---
pt is calm and cooperative with staff, pt stated to sitter that they are transgender, pt is currently awaiting placement, will continue to monitor
--- NOTE | 2021-10-27 10:08 | MHC.CARE ---
CARE Team met with emotional patient in the ED waiting room, she had just left the main ED following a disturbance related to her discharging--she had been cleared by [facility] for discharge, is homeless. Patient did calm and tearfully explained how she lost her housing and is faced with multiple life stressors. She made a plan to go to [facility] in [place] where she is a member, from there she plans to go to [facility]. Sin scheduled to pick her up outside at 10:15 bringing patient to [facility]
== END 2021-10-27 09:11 | disposition home or self-care (01) ==
PROVIDERS: Emergency Provider Emergency Medicine Emergency Medical Services
DX: U07.1 COVID-19 (principal); F33.1 Major depressive disorder, recurrent, moderate; Z79.899 Other long term (current) drug therapy
CPT/HCPCS: 36415; 80307; 81001; 81025; 87635; 99285

== ENCOUNTER 2021-11-16 11:01 | Inpatient (IN) | payer MEDICARE, MEDICAID, SELFPAY ==
--- NOTE | 2021-11-16 | ECG_ITS ---
Test Reason : med clearance Blood Pressure : / mmHG Vent. Rate : 083 BPM Atrial Rate : 083 BPM P-R Int : 158 ms QRS Dur : 078 ms QT Int : 374 ms P-R-T Axes : 071 051 035 degrees QTc Int : 439 ms Normal sinus rhythm Normal ECG When compared with ECG of 15-OCT-2021 01:20, No significant change was found Referred By: Kim Parada Electronically Signed By:Mark Nieves
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
[2021-11-16 11:51] VITALS: BP 121/82; BP 122/78; PULSE 89; PULSE 98; RESP 16; TEMP 36.9; O2SAT 98; O2SAT 99; BMI 39.8
[2021-11-16 12:28] LABS: UPreg QC Valid YES; Urine Pregnancy NEGATIVE (NEGATIVE)
[2021-11-16 12:40] LABS: COVID-19 Test Negative (Negative)
[2021-11-16 12:42] LABS: Amphetamine Screen Urine Not Detected (Not Detect); Barbiturates, Urine Not Detected (Not Detect); Benzodiazepines Screen Urine Not Detected (Not Detect); Cannabinoid Screen Urine Not Detected (Not Detect); Cocaine Screen Urine Not Detected (Not Detect); Fentanyl, urine Not Detected (Not Detect); Opiate Screen Urine Not Detected (Not Detect); Phencyclidine Screen Urine Not Detected (Not Detect)
[2021-11-16 16:27] VITALS: BP 137/83; PULSE 73; TEMP 37.2; O2SAT 97
[2021-11-16] MEDS: Nicotine Polacrilex 2 MG GUM BUCCAL (16:42)
[2021-11-16 17:31] LABS: MANUAL DIFF FLAG NO
[2021-11-16 17:33] LABS: Basophils Percent Auto 0.5 % (0-2); Eosinophils Absolute Auto 0.2 X10*3/uL (0.0-0.4); Hematocrit 38.3 % (37.0-47.0); Hemoglobin 12.9 g/dl (12.0-16.0); Imm Gran Abs Auto 0.05 X10*3/uL (0.00-0.03); Imm Gran Pct Auto 0.7 % (0.0-0.4); Lymphocytes Absolute Auto 1.8 X10*3/uL (1.2-4.9); Lymphocytes Percent Auto 23.5 % (20-40); Mean Corpuscular HGB Conc 33.7 g/dl (31.0-35.0); Mean Corpuscular Hemoglobin 29.3 pg (27.0-33.0); Mean Corpuscular Volume 86.8 fL (80.0-98.0); Mean Platelet Volume 10.7 fL (9.4-12.3); Monocytes Absolute Auto 0.8 X10*3/uL (0.1-1.2); Neutrophils Absolute Auto 4.8 x10*3/uL (2.0-8.3); Neutrophils Percent Auto 63.3 % (45-73); Platelet Count 270 X10*3/uL (160-400); Red Blood Count 4.41 X10*6/uL (4.20-5.50); Red Cell Distribution Width 13.6 % (11.0-16.0); White Blood Count 7.6 X10*3/uL (4.8-10.8)
[2021-11-16 17:58] LABS: Ethanol < 10 mg/dL
[2021-11-16 18:00] LABS: Alanine Aminotransferase 89 U/L (0-31); Alkaline Phosphatase 55 U/L (39-117); Anion Gap 10 (12-20); Aspartate Amino Transferase 40 U/L (5-31); Bilirubin Total 0.3 mg/dL (0.0-1.0); Blood Urea Nitrogen 12 mg/dL (9-16); Carbon Dioxide 28 mmol/L (22-29); Chloride 104 mmol/L (96-108); Creatinine Clr Calc Pharmacy 135.5; Estimated Glomerular Filt Rate > 60; Glucose Random 97 mg/dL (60-115); Magnesium 2.1 mg/dL (1.6-2.6); Potassium 4.5 mmol/L (3.3-5.1); Sodium 137 mmol/L (135-145); Total Protein 6.7 g/dL (6.5-8.0)
[2021-11-17 00:19] VITALS: BMI 36.4
--- NOTE | 2021-11-17 00:24 | PC.ADMIT ---
Pt. admitted to from [facility] on 11/16/2021 at 2020. Pt. signed a CV. Admitting diagnosis unspecified depressive disorder and SI. Pt. is a 41 year old female identifying as male. Prefers to be called Skinny. Pt. presented to [facility] with reported SI and plan to walk into traffic. Pt. reports one past attempt about a month ago, but was unharmed. Pt. reports experiencing positive AH of one voice telling him to hurt himself earlier in the day. AH is intermittent and new per pt. Pt. contracts for safety on the unit and has no plan while inpatient. Pt. moved into the [facility] about 9 days ago. He has his own room there, but reports he may not be able to return there upon discharge. Housing may be an issue. Pt. was A&Ox4. Pt presented with a depressed mood and affect, but was calm and cooperative during admission process. Speech is clear and appropriate. Details of events are often vague. Pt. reports a medical history of hypertension and bilateral knee arthritis. Pt. reports history of cocaine and marijuana use, but denies use since moving into the [facility]. Tox screen was negative. Pt. does not present with any acute medical issues. VS upon admission: BP 135/84, Temp 98.1, HR 86, RR 19, O2 sat 98% on RA. Pt. reported right knee pain /10. Pt. takes ibuprofen. Pt. reports medication compliance. Pharmacy is [facility]. Pt. received first COVID-19 Pfizer vaccine about 2 weeks ago. Second vaccine has not been scheduled yet. He reports mild shortness of breath and chest discomfort following the vaccine. Pt. is allergic to the flu vaccine. Pt. has a PCP, but no outpatient behavioral health providers. Pt. completed admission process and is now in bed.
[2021-11-17] MEDS: traZODone HCL 50 MG TABLET PO (02:55)
[2021-11-17 08:18] LABS: Cholesterol 219 mg/dL; HDL Cholesterol 59 mg/dL; LDL Cholesterol Calculated 119 mg/dl; Magnesium 1.8 mg/dL (1.6-2.6); Triglycerides 207 mg/dL
[2021-11-17 08:31] LABS: Estimated Average Glucose 114 mg/dL; Hemoglobin A1c % 5.6 %
[2021-11-17 08:39] LABS: Free T4 (Free Thyroxine) 0.81 ng/dL (0.71-1.85); Thyroid Stimulating Hormone 1.02 uIU/mL (0.32-4.0)
[2021-11-17] MEDS: Acetaminophen 325 MG TABLET 650 MG PO (08:51)
[2021-11-17 09:02] LABS: Folate 10.2 ng/mL (> or = 4.0); Vitamin B12 288 pg/mL (200-900)
--- NOTE | 2021-11-17 09:54 | PC.NURSE ---
Pt appeared paranoid and anxious and stated I need to be moved to M5. Everyone is against me here. I don't feel safe on this unit. When this RN asked who they felt was against them or who was making them feel unsafe, they didn't provide a specific answer. They just said I need to move to M5 because if I don't, I'm going to do something that will put me in snf. This RN notified Trish Calix and Lakeisha to see if this change would be possible.
[2021-11-17 14:22] VITALS: BP 153/86; PULSE 104
[2021-11-17] MEDS: Escitalopram Oxalate 10 MG TABLET PO (14:22)
[2021-11-17] MEDS: amLODIPine Besylate 5 MG TABLET PO (14:22)
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
[2021-11-17 18:00] VITALS: BP 126/70; PULSE 100; RESP 16; TEMP 36.6; O2SAT 99
[2021-11-17] MEDS: OLANZapine 10 MG TABLET PO (20:54)
[2021-11-17] MEDS: QUEtiapine Fumarate 100 MG TABLET PO (20:55)
[2021-11-17] MEDS: Melatonin 3 MG TABLET 6 MG PO (20:55)
--- NOTE | 2021-11-17 23:09 | PC.NURSE ---
Pt was transferred at 14:40 from M3 to M5. Pt stayed in room was alert and oriented. Said felt safe on unit, no thought of SI OR HI. Mood depressed, limited participation. Pt oriented to unit. On 15 min safety checks.
[2021-11-18] MEDS: QUEtiapine Fumarate 50 MG TABLET PO (01:54)
[2021-11-18 06:00] VITALS: BP 114/62; PULSE 90; RESP 16; TEMP 36.5; O2SAT 94
--- NOTE | 2021-11-18 11:33 | P.PNPSI_ITS ---
Subjective Subjective Date of Service: 11/18/21 Reason For Visit: si Subjective Notes: Conditional Voluntary and 3 Day Medical Problems Affecting Mental Status: No Interim History: pt disheveled, cooperative. asking to leave hospital today. d oesn't feel they need treatment. Accepting of information that discharge would not be today or over weekend. Presenting still depressed with slowed cognition and slow movements. Did give 3 day notice Medication Compliance: Yes Side effects from medications: No Attending Groups: No Review of Systems Acute medical concerns: No Review of Systems Review of Systems CVS: No c/o chest pain, palpitations, no SOB CLINICAL ACADEMIC ALLERGIST: No c/o dizziness, headache GI: No c/o Nausea, Vomiting, diarrhea, constipation or heartburn -Denies hx of seizures -Denies hx of TBI/ concussion -Denies hx of cardiac issues Mental Status Exam Mental Status Exam Narrative: A&O. In bed when approached but did sit up to converse; hair in bra ids, good hygiene. Good eye contact, attentive. No Tics or Tremors. No abnormal involuntary movements. Calm, cooperative, engaged. Non-pressured speech, spontaneous with regular rate and rhythm, normal volume and prosody. No prolonged speech latency or dysarthria. Mood is ?depressed,? affect is blunted. Endorses passive SI but denies plan or intent/ denies SIB/HI upon inquiry. Endorses AH, denies VH or delusional thought content. Thoughts are coherent, organized, hx of impulsive decision making. No known cognitive or memory impairment. Insight/ Judgment fair and adequate. Diagnostics Vital Signs (24Hr): Vital Signs - 24 hr 11/17/21 14:22 11/17/21 18:00 11/18/21 06:00 Temperature 98 F 97.7 F Pulse Rate 104 H 100 90 Respiratory Rate 16 16 Blood Pressure 153/86 H 126/70 114/62 Pulse Oximetry 99 94 BMI result Body Mass Index 36.4 Labs Results: 11/16/21 17:27 11/16/21 17:27 Labs: Laboratory Results - last 48 hr 11/16/21 11/16/21 11/16/21 12:06 12:06 12:19 WBC RBC Hgb Hct MCV MCH MCHC RDW Plt Count MPV Immature Gran % (Auto) Neut % (Auto) Lymph % (Auto) Major % (Auto) Eos % (Auto) Baso % (Auto) Lymph # (Auto) Major # (Auto) Eos # (Auto) Baso # (Auto) Abs Immat Gran (auto) Absolute Neuts (auto) Absolute Nucleated RBC Nucleated RBC % (auto) Sodium Potassium Chloride Carbon Dioxide Anion Gap BUN Creatinine Estim Creat Clear Calc Estimated GFR Random Glucose Estimat Average Glucose Hemoglobin A1c % Calcium Magnesium Total Bilirubin AST ALT Alkaline Phosphatase Total Protein Albumin Triglycerides Cholesterol LDL Cholesterol, Calc HDL Cholesterol Vitamin B12 Folate TSH Free T4 Urine Test NEGATIVE Urine Opiates Screen Not Detected Urine Fentanyl Screen Not Detected Ur Barbiturates Screen Not Detected Ur Phencyclidine Scrn Not Detected Ur Amphetamines Screen Not Detected U Benzodiazepines Scrn Not Detected Urine Cocaine Screen Not Detected U Marijuana (THC) Screen Not Detected Ethyl Alcohol COVID-19 (BRANDI) Negative COVID-19 KIWATCH See Note 11/16/21 11/16/21 11/16/21 17:27 17:27 17:27 WBC 7.6 RBC 4.41 Hgb 12.9 Hct 38.3 MCV 86.8 MCH 29.3 MCHC 33.7 RDW 13.6 Plt Count 270 MPV 10.7 Immature Gran % (Auto) 0.7 H Neut % (Auto) 63.3 Lymph % (Auto) 23.5 Major % (Auto) 10.0 Eos % (Auto) 2.0 Baso % (Auto) 0.5 Lymph # (Auto) 1.8 Major # (Auto) 0.8 Eos # (Auto) 0.2 Baso # (Auto) 0.0 Abs Immat Gran (auto) 0.05 H Absolute Neuts (auto) 4.8 Absolute Nucleated RBC 0.000 Nucleated RBC % (auto) 0.0 Sodium 137 Potassium 4.5 D Chloride 104 Carbon Dioxide 28 Anion Gap 10 L BUN 12 Creatinine 0.70 Estim Creat Clear Calc 135.5 Estimated GFR > 60 Random Glucose 97 Estimat Average Glucose Hemoglobin A1c % Calcium 10.0 D Magnesium 2.1 Total Bilirubin 0.3 AST 40 H D ALT 89 H Alkaline Phosphatase 55 Total Protein 6.7 Albumin 4.0 Triglycerides Cholesterol LDL Cholesterol, Calc HDL Cholesterol Vitamin B12 Folate TSH Free T4 Urine Test Urine Opiates Screen Urine Fentanyl Screen Ur Barbiturates Screen Ur Phencyclidine Scrn Ur Amphetamines Screen U Benzodiazepines Scrn Urine Cocaine Screen U Marijuana (THC) Screen Ethyl Alcohol < 10 COVID-19 (BRANDI) COVID-19 [facility] Com 11/17/21 11/17/21 11/17/21 07:42 07:42 07:42 WBC RBC Hgb Hct MCV MCH MCHC RDW Plt Count MPV Immature Gran % (Auto) Neut % (Auto) Lymph % (Auto) Major % (Auto) Eos % (Auto) Baso % (Auto) Lymph # (Auto) Major # (Auto) Eos # (Auto) Baso # (Auto) Abs Immat Gran (auto) Absolute Neuts (auto) Absolute Nucleated RBC Nucleated RBC % (auto) Sodium Potassium Chloride Carbon Dioxide Anion Gap BUN Creatinine Estim Creat Clear Calc Estimated GFR Random Glucose Estimat Average Glucose 114 Hemoglobin A1c % 5.6 Calcium Magnesium 1.8 Total Bilirubin AST ALT Alkaline Phosphatase Total Protein Albumin Triglycerides 207 Cholesterol 219 LDL Cholesterol, Calc 119 HDL Cholesterol 59 Vitamin B12 288 Folate 10.2 TSH 1.02 Free T4 0.81 Urine Test Urine Opiates Screen Urine Fentanyl Screen Ur Barbiturates Screen Ur Phencyclidine Scrn Ur Amphetamines Screen U Benzodiazepines Scrn Urine Cocaine Screen U Marijuana (THC) Screen Ethyl Alcohol COVID-19 (BRANDI) COVID-19 Clin Com Medications Medications Current Medications Acetaminophen (Acetaminophen 325 Mg Tablet) 650 mg PO Q6H PRN PRN Reason: Headache/Pain Mild Scale (1-3) Last Admin: 11/17/21 08:51 Dose: 650 mg Documented by: Al Hydroxide/Mg Hydroxide (Magnesium Hydrox/Alum Hydrox 30 Ml Oral.Susp) 30 ml PO Q6H PRN PRN Reason: Heartburn/Nausea Amlodipine Besylate (Amlodipine Besylate 5 Mg Tablet) 5 mg PO DAILY [facility]; Protocol Last Admin: 11/18/21 11:00 Dose: Not Given Documented by: Escitalopram Oxalate (Escitalopram Oxalate 10 Mg Tablet) 10 mg PO DAILY [facility] Last Admin: 11/18/21 11:00 Dose: Not Given Documented by: Hydroxyzine HCl (Hydroxyzine Hcl 25 Mg Tablet) 25 mg PO Q6H PRN PRN Reason: Anxiety Ibuprofen (Ibuprofen 800 Mg Tablet) 800 mg PO Q8H PRN PRN Reason: mild- moderate pain Magnesium Hydroxide (Milk Of Magnesia 30 Ml Oral.Susp) 30 ml PO DAILY PRN PRN Reason: Constipation Melatonin (Melatonin 3 Mg Tablet) 6 mg PO BEDTIME [facility] Last Admin: 11/17/21 20:55 Dose: 6 mg Documented by: Olanzapine (Olanzapine 10 Mg Tablet) 10 mg PO BEDTIME [facility] Last Admin: 11/17/21 20:54 Dose: 10 mg Documented by: Olanzapine (Olanzapine 5 Mg Tablet) 5 mg PO Q6H PRN PRN Reason: anxiety, agitation Quetiapine Fumarate (Quetiapine Fumarate 50 Mg Tablet) 50 mg PO BEDTIME PRN PRN Reason: anxiety, insomnia Last Admin: 11/18/21 01:54 Dose: 50 mg Documented by: Quetiapine Fumarate (Quetiapine Fumarate 100 Mg Tablet) 100 mg PO BEDTIME [facility] Last Admin: 11/17/21 20:55 Dose: 100 mg Documented by: Trazodone HCl (Trazodone Hcl 50 Mg Tablet) 50 mg PO BEDTIME PRN PRN Reason: Insomnia Last Admin: 11/17/21 02:55 Dose: 50 mg Documented by: Allergies Allergies Allergy/AdvReac Type Severity Reaction Status Date / Time No Known Allergies Allergy Verified 10/21/21 11:53 flu shot Allergy Unknown unknown Uncoded 10/15/21 18:55 Assessment & Plan Assessment & Plan (1) PTSD (post-traumatic stress disorder): Status: Acute Code(s): F43.10 - Post-traumatic stress disorder, unspecified (2) Cocaine use disorder: Status: Acute Code(s): F14.10 - Cocaine abuse, uncomplicated Assessment and Plan: Pt is 41 y.o. trans male. He presented to [facility] 11/16/21 after being evaluated by N crisis in the community due to pt reporting SI with plan while in treatment at the [facility]. Pt has a hx of depression, mood dysregulation, agitation, perceptual disturbances (AH, may be a function of trauma and dep ression), anxiety, and poor sleep. Hx of cocaine abuse, has been abstinent x 3 weeks. Pt recently discharged from [facility] M5 and has been med adherent. Plan: Pt reports positive benefit on seroquel 100 mg QHS for sleep, however he is still waking up at 5am. Will start seroquel 50 mg QHS PRN, may utilize if he wakes up, as he reports anxiety and racing thoughts upon waking up is causing the difficulty with falling back to sleep. Also discussed utilizing melatonin to help with sleep hygiene, will start melatonin 6 mg QHS. Pt is advocating for a PRN medication for anxiety. Says zyprexa has helped with anxiety at bedtime, however they have residual anxiety and agitation in the day. Discussed using zyprexa 5 mg Q6H PRN for anxious agitation, as pt would like to reserve seroquel for sleep. Denies benefit on hydroxyzine. Pt is on Q15 min safety checks. Pt admitted on a CV and 3 day notice was signed on 11/16/21.? Monitor response to medications. Monitor for safety in the milieu. Discharge on stabilization. Patient seen. Chart reviewed. Discussed with team. Obtain collateral contact info?as needed 11/18/21 continue treatment plan I spent minutes with the patient and/or on the patient floor today, greater than?50% of which was spent counseling/coordinating care. Reason for contiued inpatient stay Substantial Risk for: harm to self, inability to function and med/psych decompensation
[2021-11-18] MEDS: OLANZapine 5 MG TABLET PO (18:01)
[2021-11-18] MEDS: hydrOXYzine HCL 25 MG TABLET PO (18:01)
[2021-11-18 18:20] VITALS: BP 147/80; PULSE 88; RESP 16; TEMP 36.8; O2SAT 99
[2021-11-18] MEDS: QUEtiapine Fumarate 100 MG TABLET PO (20:15)
[2021-11-18] MEDS: Melatonin 3 MG TABLET 6 MG PO (20:15)
[2021-11-18] MEDS: OLANZapine 10 MG TABLET PO (20:15)
[2021-11-19 05:24] VITALS: BP 126/88; PULSE 83; RESP 16; TEMP 36.1; O2SAT 99
[2021-11-19 08:20] VITALS: BP 120/80; PULSE 102
[2021-11-19] MEDS: Escitalopram Oxalate 10 MG TABLET PO (08:20)
[2021-11-19] MEDS: amLODIPine Besylate 5 MG TABLET PO (08:20)
[2021-11-19] MEDS: OLANZapine 5 MG TABLET PO (11:36)
--- NOTE | 2021-11-19 19:56 | P.PNPSI_ITS ---
Subjective Subjective Date of Service: 11/19/21 Reason For Visit: si Interim History: pt disheveled, cooperative. continues to ask to leave hospital today. doesn't feel they need treatment. Accepting of information that discharge would not be over weekend. Presenting still depressed and irritable with slowed cognition and slow movements. Did give 3 day notice Medication Compliance: Yes Side effects from medications: No Attending Groups: Intermittent Review of Systems Acute medical concerns: No Medical Review of Systems: unchanged Review of Systems Review of Systems CVS: No c/o chest pain, palpitations, no SOB CAT SCAN TECH: No c/o dizziness, headache GI: No c/o Nausea, Vomiting, diarrhea, constipation or heartburn -Denies hx of seizures -Denies hx of TBI/ concussion -Denies hx of cardiac issues Mental Status Exam Mental Status Exam Narrative: A&O. hygiene fair. Good eye contact, attentive. No Tics or Tremors. No abnormal involuntary movements. Calm, cooperative, engaged. Non-pressured speech, spontaneous with regular rate and rhythm, normal volume and prosody. No prolonged speech latency or dysarthria. Mood is ?depressed,? affect is blunted. Endorses passive SI but denies plan or intent/ denies SIB/HI upon inquiry. Endorses AH, denies VH or delusional thought content. Thoughts are coherent, organized, hx of impulsive decision making. No known cognitive or memory impairment. Insight/ Judgment fair and adequate. Diagnostics Vital Signs (24Hr): Vital Signs - 24 hr 11/19/21 05:24 11/19/21 08:20 Temperature 97 F Pulse Rate 83 102 H Respiratory Rate 16 Blood Pressure 126/88 120/80 Pulse Oximetry 99 BMI result Body Mass Index 36.4 Labs Results: 11/16/21 17:27 11/16/21 17:27 Medications Medications Current Medications Acetaminophen (Acetaminophen 325 Mg Tablet) 650 mg PO Q6H PRN PRN Reason: Headache/Pain Mild Scale (1-3) Last Admin: 11/17/21 08:51 Dose: 650 mg Documented by: Al Hydroxide/Mg Hydroxide (Magnesium Hydrox/Alum Hydrox 30 Ml Oral.Susp) 30 ml PO Q6H PRN PRN Reason: Heartburn/Nausea Amlodipine Besylate (Amlodipine Besylate 5 Mg Tablet) 5 mg PO DAILY [facility]; Protocol Last Admin: 11/19/21 08:20 Dose: 5 mg Documented by: Escitalopram Oxalate (Escitalopram Oxalate 10 Mg Tablet) 10 mg PO DAILY [facility] Last Admin: 11/19/21 08:20 Dose: 10 mg Documented by: Hydroxyzine HCl (Hydroxyzine Hcl 25 Mg Tablet) 25 mg PO Q6H PRN PRN Reason: Anxiety Last Admin: 11/18/21 18:01 Dose: 25 mg Documented by: Ibuprofen (Ibuprofen 800 Mg Tablet) 800 mg PO Q8H PRN PRN Reason: mild- moderate pain Magnesium Hydroxide (Milk Of Magnesia 30 Ml Oral.Susp) 30 ml PO DAILY PRN PRN Reason: Constipation Melatonin (Melatonin 3 Mg Tablet) 6 mg PO BEDTIME [facility] Last Admin: 11/18/21 20:15 Dose: 6 mg Documented by: Olanzapine (Olanzapine 10 Mg Tablet) 10 mg PO BEDTIME [facility] Last Admin: 11/18/21 20:15 Dose: 10 mg Documented by: Olanzapine (Olanzapine 5 Mg Tablet) 5 mg PO Q6H PRN PRN Reason: anxiety, agitation Last Admin: 11/19/21 11:36 Dose: 5 mg Documented by: Quetiapine Fumarate (Quetiapine Fumarate 50 Mg Tablet) 50 mg PO BEDTIME PRN PRN Reason: anxiety, insomnia Last Admin: 11/18/21 01:54 Dose: 50 mg Documented by: Quetiapine Fumarate (Quetiapine Fumarate 100 Mg Tablet) 100 mg PO BEDTIME [facility] Last Admin: 11/18/21 20:15 Dose: 100 mg Documented by: Trazodone HCl (Trazodone Hcl 50 Mg Tablet) 50 mg PO BEDTIME PRN PRN Reason: Insomnia Last Admin: 11/17/21 02:55 Dose: 50 mg Documented by: Allergies Allergies Allergy/AdvReac Type Severity Reaction Status Date / Time No Known Allergies Allergy Verified 10/21/21 11:53 flu shot Allergy Unknown unknown Uncoded 10/15/21 18:55 Assessment & Plan Assessment & Plan (1) PTSD (post-traumatic stress disorder): Status: Acute Code(s): F43.10 - Post-traumatic stress disorder, unspecified (2) Cocaine use disorder: Status: Acute Code(s): F14.10 - Cocaine abuse, uncomplicated Assessment and Plan: Pt is 41 y.o. trans male. He presented to [facility] 11/16/21 after being evaluated by [facility] crisis in the community due to pt reporting SI with plan while in treatment at the [facility]. Pt has a hx of depression, mood dysregulation, agitation, perceptual disturbances (AH, may be a function of trauma and depress ion), anxiety, and poor sleep. Hx of cocaine abuse, has been abstinent x 3 weeks. Pt recently discharged from [facility] M5 and has been med adherent. Plan: Pt reports positive benefit on seroquel 100 mg QHS for sleep, however he is still waking up at 5am. Will start seroquel 50 mg QHS PRN, may utilize if he wakes up, as he reports anxiety and racing thoughts upon waking up is causing the difficulty with falling back to sleep. Also discussed utilizing melatonin to help with sleep hygiene, will start melatonin 6 mg QHS. Pt is advocating for a PRN medication for anxiety. Says zyprexa has helped with anxiety at bedtime, however they have residual anxiety and agitation in the day. Discussed using zyp rexa 5 mg Q6H PRN for anxious agitation, as pt would like to reserve seroquel for sleep. Denies benefit on hydroxyzine. Pt is on Q15 min safety checks. Pt admitted on a CV and 3 day notice was signed on 11/16/21.? Monitor response to medications. Monitor for safety in the milieu. Discharge on stabilization. Patient seen. Chart reviewed. Discussed with team. Obtain collateral contact info?as needed 11/18/21 continue treatment plan 11/19/21 continue treatment plan I spent minutes with the patient and/or on the patient floor today, greater than?50% of which was spent counseling/coordinating care. Reason for contiued inpatient stay Substantial Risk for: harm to self, inability to function and rapid decompensation
[2021-11-19] MEDS: QUEtiapine Fumarate 100 MG TABLET PO (20:28)
[2021-11-19] MEDS: OLANZapine 10 MG TABLET PO (20:28)
[2021-11-19] MEDS: Melatonin 3 MG TABLET 6 MG PO (20:28)
[2021-11-20 06:56] VITALS: BP 121/82; PULSE 88; RESP 16; TEMP 36.3; O2SAT 99
[2021-11-20 08:20] VITALS: BP 122/76; PULSE 90
[2021-11-20] MEDS: amLODIPine Besylate 5 MG TABLET PO (08:20)
[2021-11-20] MEDS: Escitalopram Oxalate 10 MG TABLET PO (08:20)
[2021-11-20] MEDS: hydrOXYzine HCL 25 MG TABLET PO ×2 (08:40→19:27)
--- NOTE | 2021-11-20 10:46 | HO.PSYCHPN ---
Subjective Subjective Date of Service: 11/20/21 Reason For Visit: si Interim History: pt disheveled, cooperative. continues to ask to leave hospital today. States they have n medical appt tomorrow at 1pm and wants discharge to go to appt. doesn't feel they need treatment. Accepting of information that discharge would not be over weekend. Presenting still depressed and irritable with slowed cognition and slow movements. Did give 3 day notice Medication Compliance: Yes Side effects from medications: No Attending Groups: Intermittent Review of Systems Acute medical concerns: No Medical Review of Systems: unchanged Review of Systems Review of Systems CVS: No c/o chest pain, palpitations, no SOB CLIENT ENGAGEMENT SPECIALIST: No c/o dizziness, headache GI: No c/o Nausea, Vomiting, diarrhea, constipation or heartburn -Denies hx of seizures -Denies hx of TBI/ concussion -Denies hx of cardiac issues Mental Status Exam Mental Status Exam Narrative: A&O. hygiene fair. Good eye contact, attentive. No Tics or Tremors. No abnormal involuntary movements. Calm, cooperative, engaged. Non-pressured speech, spontaneous with regular rate and rhythm, normal volume and prosody. No prolonged speech latency or dysarthria. Mood is ?depressed,? affect is blunted. Denies SI , enies SIB/HI upon inquiry. Endorses AH, denies VH or delusional thought content. Thoughts are coherent, organized, hx of impulsive decision making. No known cognitive or memory impairment. Insight/ Judgment fair and adequate. Diagnostics Vital Signs (24Hr): Vital Signs - 24 hr 11/20/21 06:56 11/20/21 08:20 Temperature 97.4 F Pulse Rate 88 90 Respiratory Rate 16 Blood Pressure 121/82 122/76 Pulse Oximetry 99 BMI result Body Mass Index 36.4 Labs Results: 11/16/21 17:27 11/16/21 17:27 Medications Medications Current Medications Acetaminophen (Acetaminophen 325 Mg Tablet) 650 mg PO Q6H PRN PRN Reason: Headache/Pain Mild Scale (1-3) Last Admin: 11/17/21 08:51 Dose: 650 mg Documented by: Al Hydroxide/Mg Hydroxide (Magnesium Hydrox/Alum Hydrox 30 Ml Oral.Susp) 30 ml PO Q6H PRN PRN Reason: Heartburn/Nausea Amlodipine Besylate (Amlodipine Besylate 5 Mg Tablet) 5 mg PO DAILY [facility]; Protocol Last Admin: 11/20/21 08:20 Dose: 5 mg Documented by: Escitalopram Oxalate (Escitalopram Oxalate 10 Mg Tablet) 10 mg PO DAILY [facility] Last Admin: 11/20/21 08:20 Dose: 10 mg Documented by: Hydroxyzine HCl (Hydroxyzine Hcl 25 Mg Tablet) 25 mg PO Q6H PRN PRN Reason: Anxiety Last Admin: 11/20/21 08:40 Dose: 25 mg Documented by: Ibuprofen (Ibuprofen 800 Mg Tablet) 800 mg PO Q8H PRN PRN Reason: mild- moderate pain Magnesium Hydroxide (Milk Of Magnesia 30 Ml Oral.Susp) 30 ml PO DAILY PRN PRN Reason: Constipation Melatonin (Melatonin 3 Mg Tablet) 6 mg PO BEDTIME [facility] Last Admin: 11/19/21 20:28 Dose: 6 mg Documented by: Olanzapine (Olanzapine 10 Mg Tablet) 10 mg PO BEDTIME [facility] Last Admin: 11/19/21 20:28 Dose: 10 mg Documented by: Olanzapine (Olanzapine 5 Mg Tablet) 5 mg PO Q6H PRN PRN Reason: anxiety, agitation Last Admin: 11/19/21 11:36 Dose: 5 mg Documented by: Quetiapine Fumarate (Quetiapine Fumarate 50 Mg Tablet) 50 mg PO BEDTIME PRN PRN Reason: anxiety, insomnia Last Admin: 11/18/21 01:54 Dose: 50 mg Documented by: Quetiapine Fumarate (Quetiapine Fumarate 100 Mg Tablet) 100 mg PO BEDTIME [facility] Last Admin: 11/19/21 20:28 Dose: 100 mg Documented by: Trazodone HCl (Trazodone Hcl 50 Mg Tablet) 50 mg PO BEDTIME PRN PRN Reason: Insomnia Last Admin: 11/17/21 02:55 Dose: 50 mg Documented by: Allergies Allergies Allergy/AdvReac Type Severity Reaction Status Date / Time No Known Allergies Allergy Verified 10/21/21 11:53 flu shot Allergy Unknown unknown Uncoded 10/15/21 18:55 Assessment & Plan Assessment & Plan (1) PTSD (post-traumatic stress disorder): Status: Acute Code(s): F43.10 - Post-traumatic stress disorder, unspecified (2) Cocaine use disorder: Status: Acute Code(s): F14.10 - Cocaine abuse, uncomplicated Assessment and Plan: Pt is 41 y.o. trans male. He presented to [facility] 11/16/21 after being evaluated by N crisis in the community due to pt reporting SI with plan while in treatment at the [facility]. Pt has a hx of depression, mood dysregulation, agitation, perceptual disturbances (AH, may be a function of trauma and depression), anxiety, and poor sleep. Hx of cocaine abuse, has been abstinent x 3 weeks. Pt recently discharged from [facility] M5 and has been med adherent. Plan: Pt reports positive benefit on seroquel 100 mg QHS for sleep, however he is still waking up at 5am. Will start seroquel 50 mg QHS PRN, may utilize if he wakes up, as he reports anxiety and racing thoughts upon waking up is causing the difficulty with falling back to sleep. Also discussed utilizing melatonin to help with sleep hygiene, will start melatonin 6 mg QHS. Pt is advocating for a PRN medication for anxiety. Says zyprexa has helped with anxiety at bedtime, however they have residual anxiety and agitation in the day. Discussed using zyprexa 5 mg Q6H PRN for anxious agitation, as pt would like to reserve seroquel for sleep. Denies benefit on hydroxyzine. Pt is on Q15 min safety checks. Pt admitted on a CV and 3 day notice was signed on 11/16/21.? Monitor response to medications. Monitor for safety in the milieu. Discharge on stabilization. Patient seen. Chart reviewed. Discussed with team. Obtain collateral contact info?as needed 11/18/21 continue treatment plan 11/19/21 continue treatment plan 11/20/21 continue current treatment plan I spent minutes with the patient and/or on the patient floor today, greater than?50% of which was spent counseling/coordinating care. Reason for contiued inpatient stay Substantial Risk for: harm to self and inability to function
[2021-11-20] MEDS: QUEtiapine Fumarate 100 MG TABLET PO (22:47)
[2021-11-20] MEDS: Melatonin 3 MG TABLET 6 MG PO (22:47)
[2021-11-20] MEDS: OLANZapine 10 MG TABLET PO (22:47)
[2021-11-21 08:59] VITALS: BP 136/87; PULSE 98
[2021-11-21] MEDS: amLODIPine Besylate 5 MG TABLET PO (08:59)
[2021-11-21] MEDS: Escitalopram Oxalate 10 MG TABLET PO (09:00)
[2021-11-21] MEDS: OLANZapine 5 MG TABLET PO (09:25)
--- NOTE | 2021-11-21 11:13 | P.DS_ITS ---
DS: Providers Provider Date of Service: 11/21/21 Date of admission: 11/16/21 19:17 Date of discharge: 11/21/21 [facility] Admitting clinician: Pily Minor Attending physician on discharge: Sergo Watts DS: Diagnosis Discharge Diagnosis (1) PTSD (post-traumatic stress disorder): Status: Acute (2) Cocaine use disorder: Status: Resolved DS: Medications Discharge Medications Home Medications: Previous Rx's Medication Instructions Recorded ibuprofen 800 mg tablet 800 mg PO Q8H PRN #14 tab 10/21/21 amlodipine 5 mg tablet 5 mg PO DAILY 30 Days #30 tab 11/21/21 escitalopram oxalate 10 mg tablet 10 mg PO DAILY 30 Days #30 tab 11/21/21 melatonin 3 mg tablet 6 mg PO BEDTIME PRN 30 Days #60 11/21/21 tab olanzapine 10 mg tablet 10 mg PO BEDTIME 30 Days #30 tab 11/21/21 quetiapine 100 mg tablet 100 mg PO BEDTIME PRN 30 Days #30 11/21/21 tab Mental Status Exam Mental Status Exam Narrative: Appearance: mildly unkempt but adequate hygiene Patient Orientation:?Person, Place, Time and Situation Level of Consciousness:?Awake Patient Behavior:?Appropriate Mood Description:? good Affect Description:?congruent, calm Patient Cognition Impaired:?No Ability to Follow Directions:?Fair Speech Pattern:?Clear Hallucinations:?denies (resolved) Thought Process:? Linear, logical and goal directed Thought Content:? Denies any SI or HI.? discharge, getting into program Abnormal Motor Activity Signs and Symptoms:? None Judgment and Insight:? fair and adequate Data Data Completed and Pending Completed studies during hospitalization [Text1]: 11/16/21 11/16/21 11/16/21 12:06 12:06 12:19 WBC RBC Hgb Hct MCV MCH MCHC RDW Plt Count MPV Immature Gran % (Auto) Neut % (Auto) Lymph % (Auto) Lucas % (Auto) Eos % (Auto) Baso % (Auto) Lymph # (Auto) Lucas # (Auto) Eos # (Auto) Baso # (Auto) Abs Immat Gran (auto) Absolute Neuts (auto) Absolute Nucleated RBC Nucleated RBC % (auto) Sodium Potassium Chloride Carbon Dioxide Anion Gap BUN Creatinine Estim Creat Clear Calc Estimated GFR Random Glucose Estimat Average Glucose Hemoglobin A1c % Calcium Magnesium Total Bilirubin AST ALT Alkaline Phosphatase Total Protein Albumin Triglycerides Cholesterol LDL Cholesterol, Calc HDL Cholesterol Vitamin B12 Folate TSH Free T4 Urine Test NEGATIVE Urine Opiates Screen Not Detected Urine Fentanyl Screen Not Detected Ur Barbiturates Screen Not Detected Ur Phencyclidine Scrn Not Detected Ur Amphetamines Screen Not Detected U Benzodiazepines Scrn Not Detected Urine Cocaine Screen Not Detected U Marijuana (THC) Screen Not Detected Ethyl Alcohol COVID-19 ([facility]) Negative COVID-19 Clin Com See Note 11/16/21 11/16/21 11/16/21 17:27 17:27 17:27 WBC 7.6 RBC 4.41 Hgb 12.9 Hct 38.3 MCV 86.8 MCH 29.3 MCHC 33.7 RDW 13.6 Plt Count 270 MPV 10.7 Immature Gran % (Auto) 0.7 H Neut % (Auto) 63.3 Lymph % (Auto) 23.5 Lucas % (Auto) 10.0 Eos % (Auto) 2.0 Baso % (Auto) 0.5 Lymph # (Auto) 1.8 Lucas # (Auto) 0.8 Eos # (Auto) 0.2 Baso # (Auto) 0.0 Abs Immat Gran (auto) 0.05 H Absolute Neuts (auto) 4.8 Absolute Nucleated RBC 0.000 Nucleated RBC % (auto) 0.0 Sodium 137 Potassium 4.5 D Chloride 104 Carbon Dioxide 28 Anion Gap 10 L BUN 12 Creatinine 0.70 Estim Creat Clear Calc 135.5 Estimated GFR > 60 Random Glucose 97 Estimat Average Glucose Hemoglobin A1c % Calcium 10.0 D Magnesium 2.1 Total Bilirubin 0.3 AST 40 H D ALT 89 H Alkaline Phosphatase 55 Total Protein 6.7 Albumin 4.0 Triglycerides Cholesterol LDL Cholesterol, Calc HDL Cholesterol Vitamin B12 Folate TSH Free T4 Urine Test Urine Opiates Screen Urine Fentanyl Screen Ur Barbiturates Screen Ur Phencyclidine Scrn Ur Amphetamines Screen U Benzodiazepines Scrn Urine Cocaine Screen U Marijuana (THC) Screen Ethyl Alcohol < 10 COVID-19 ([facility]) COVID-19 Clin Com 11/17/21 11/17/21 11/17/21 07:42 07:42 07:42 WBC RBC Hgb Hct MCV MCH MCHC RDW Plt Count MPV Immature Gran % (Auto) Neut % (Auto) Lymph % (Auto) Lucas % (Auto) Eos % (Auto) Baso % (Auto) Lymph # (Auto) Lucas # (Auto) Eos # (Auto) Baso # (Auto) Abs Immat Gran (auto) Absolute Neuts (auto) Absolute Nucleated RBC Nucleated RBC % (auto) Sodium Potassium Chloride Carbon Dioxide Anion Gap BUN Creatinine Estim Creat Clear Calc Estimated GFR Random Glucose Estimat Average Glucose 114 Hemoglobin A1c % 5.6 Calcium Magnesium 1.8 Total Bilirubin AST ALT Alkaline Phosphatase Total Protein Albumin Triglycerides 207 Cholesterol 219 LDL Cholesterol, Calc 119 HDL Cholesterol 59 Vitamin B12 288 Folate 10.2 TSH 1.02 Free T4 0.81 Urine Test Urine Opiates Screen Urine Fentanyl Screen Ur Barbiturates Screen Ur Phencyclidine Scrn Ur Amphetamines Screen U Benzodiazepines Scrn Urine Cocaine Screen U Marijuana (THC) Screen Ethyl Alcohol COVID-19 ([facility]) COVID-19 Clin Com DS: Summary Hospital Course Hospital Course: Pt is 41 y.o. trans male. He presented to [facility] [place] after being evaluated by N crisis in the community due to pt reporting SI with plan while in treatment at the [facility]. Pt has a hx of depression, mood dysregulation, agitation, perceptual disturbances (AH function of trauma and depression), anxiety, and poor sleep. Hx of cocaine abuse, has been abstinent x 3 weeks. Pt recently discharged from [facility] and has been med adherent. Auditory hallucinations more mood congruent and fully resolved; SI also fully resolved. Utilized Seroquel for insomnia and anxiety. Patient remained with some depression but said felt safe for discharge and put in a 3 day notice. Patient continued to demonstrate good behavioral and impulse control unit and continued to deny any SI or HI or AVH. Patient remained focused on discharge and did not want to remain on the unit any longer for any additional help. At baseline, Patient struggles in the community with chronic, intermittent emotional lability, substance abuse and periodic decompensation. However, as mentioned these issues are chronic and will not change with longer stay on an inpatient unit, but rather require consistent outpatient therapy and treatment. Given patient's history, it is very likely that He will continue to intermittently struggle with these chronic issues, including substance abuse, and remains at risk to at some point again decompensate. However also as mentioned, this is patient's baseline. Patient is not currently in imminent risk for harm to self or others and does not meet criteria for involuntary commitment. Patient's 3 day notice is due and Request for discharge honored. Time spent discussing smoking cessation with patient: 3 to 10 minutes Status at Discharge Functional status at discharge: independent ambulation Overall status at discharge: patient is back to baseline Time Spent with Patient Time attestation: Total time spent providing and/or coordinating discharge services: Time spent: Less than 30 minutes Discharge Plan Discharge Patient Disposition: Retirement Discharge Diagnosis: PTSD, chronic with acute exacerbation Referrals: [facility] [Other] - 1 Week (Referral placed for both therapy and psychiatry appointment follow up. [facility] to contact you with appointments. Also, you can also contact [facility]'s intake department to confirm appointment dates and times. The number is [phone].) Patricia Paz, COMPLIANCE PROFESSIONAL-BC [Primary Care Provider] - 1 Week Discharge Medications: New quetiapine 100 mg Tablet 100 mg PO BEDTIME PRN (Reason: insomnia) 30 Days Qty: 30 0RF melatonin 3 mg Tablet 6 mg PO BEDTIME PRN (Reason: sleep) 30 Days Qty: 60 0RF Narcan 4 mg/actuation spray,non-aerosol 4 mg intranasal Q2M PRN (Reason: opioid overdose) Qty: 2 0RF Rx Instructions: spray 1 dose into ONE nostril; alternate nostrils w each dose until help arrives Continued ibuprofen 800 mg tablet 800 mg PO Q8H PRN (Reason: pain) Qty: 14 0RF amlodipine 5 mg tablet 5 mg PO DAILY 30 Days Qty: 30 0RF escitalopram oxalate 10 mg Tablet 10 mg PO DAILY 30 Days Qty: 30 0RF Changed olanzapine 10 mg tablet 10 mg PO BEDTIME 30 Days Qty: 30 0RF Discontinued quetiapine 25 mg Tablet 75 mg PO BEDTIME 30 Days Qty: 90 0RF Discharge Orders: Discharge Order (Routine); Ordered 11/21/21 Ordered By: Sergo Watts Diet: regular diet Activity on Discharge: As tolerated Stand Alone Forms: Patient Portal Discharge page, Community Support Care Plan Goals: Maintain mood and safe behaviors Take medications as prescribed Continue to pursue sobriety Practice coping skills Continue with outpatient providers and reach out to them as needed Health Concerns: Mood stability and behaviors Sobriety Plan of Treatment: Follow up with your PCP, psychiatric provider and other outpatient providers regarding above concerns Take medications as prescribed Assessment: Risk assessment at time of discharge:? Patient was interviewed prior to dis charge and found to be fully oriented and without any SI or HI. Patient has insight and demonstrates good judgment in terms of wanting to pursue treatment. Patient is not in imminent risk of harm to self or others and has a safety plan that includes presenting to the closest ER or calling 911 if feeling unsafe.? Patient has been observed closely by nursing and unit staff throughout admission; patient has not engaged in any behaviors that suggest dangerousness to self or others; in beginning of admission, patient did have a dysregulated moment but was redirectable; otherwise has demonstrated appropriate behaviors and impulse control Discharge Date/Time: 11/21/21 15:07
== END 2021-11-21 15:07 | disposition home or self-care (01) | DRG 882 ==
LOC: HO.ED 19:38 → HO.PADLT16 19:42 → HO.PM5 11-17 15:54
PROVIDERS: Admitting Provider Registered Nurse; Emergency Provider Emergency Medicine; PCP Nurse Practitioner Family; Visit Provider Registered Nurse
DX: F43.10 Post-traumatic stress disorder, unspecified (principal); R45.851 Suicidal ideations; F64.0 Transsexualism; F17.210 Nicotine dependence, cigarettes, uncomplicated; F14.10 Cocaine abuse, uncomplicated; Z20.822 Contact with and (suspected) exposure to COVID-19; Z71.6 Tobacco abuse counseling; Z79.1 Long term (current) use of non-steroidal anti-inflammatories (NSAID); Z79.899 Other long term (current) drug therapy
CPT/HCPCS: 36415; 80053; 80061; 80307; 81025; 82077; 82607; 82746; 83036; 83735; 84439; 84443; 85025; 87635; 93005; 99285